=== PATIENT | male | born 2000 | race Caucasian/White ===

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

== ENCOUNTER 2022-04-04 12:16 | Emergency (ER) | payer BC ==
[2022-04-04] MEDS ORDERED: Boostrix 0.5 ML (Tdap) VIAL (>/=7 yrs of age) ONE (13:00)
[2022-04-04] MEDS ORDERED: Silver Sulfadiazine 50 GM TUBE ONE (13:00)
[2022-04-04] MEDS ORDERED: Cephalexin 500 MG CAP ONE (13:17)
== END 2022-04-04 13:19 | disposition home or self-care (01) ==
LOC: MADERS 12:16
DX: T22.20XA Burn of second degree of shoulder and upper limb, except wrist and hand, unspecified site, initial encounter (principal); X03.0XXA Exposure to flames in controlled fire, not in building or structure, initial encounter
CPT/HCPCS: 90471; 90715

== ENCOUNTER 2022-07-29 12:34 | Emergency (ER) | payer BC ==
[2022-07-29] MEDS ORDERED: Ketorolac Tromethamine 60 MG/2 ML VIAL ONE (13:15)
[2022-07-29] MEDS ORDERED: HYDROcodone/Acetaminophen 5/325 mg Tablet ONE (13:50)
[2022-07-29] MEDS ORDERED: Orphenadrine Citrate 60 MG/2 ML VIAL ONE (13:50)
== END 2022-07-29 14:35 | disposition home or self-care (01) ==
LOC: MADERS 12:34
DX: R29.898 Other symptoms and signs involving the musculoskeletal system (principal)
CPT/HCPCS: 71045; 96372; J1885; J2360

== ENCOUNTER 2022-09-15 22:21 | Emergency (ER) | payer OTHER, BC ==
[~2022-09-15 22:21] MED LIST: Iopamidol 370 76% 100 ML VIAL ONE; PROPOFOL 200 MG/20 ML VIAL ONE; Rocuronium Bromide 10 MG/ML (10ML VIAL) ONE; Sodium Chloride 0.9% 1,000 ML BAG ONE; Succinylcholine 200 MG/10 ml SYRINGE FS ONE
[2022-09-15] MEDS ORDERED: Ondansetron PF 4 MG/2 ML Vial ONE (22:23)
[2022-09-15 22:48] LABS: #Basophils 0.1 thou/uL (0.0-0.2); #Eosinphils 0.2 thou/uL (0.0-0.7); #Lymphocytes 2.7 thou/uL (1.20-3.40); #Monocytes 0.8 thou/uL (0.11-0.59); #Neutrophils 10.1 thou/uL (1.40-6.50); %Basophils 0.7 % (0.0-1.0); %Eosinophils 1.7 % (0.0-10.0); %Lymphocytes 19.1 % (21.0-51.0); %Monocytes 5.8 % (0.0-10.0); %Neutrophils 72.8 % (42.0-75.0); Hemoglobin 15.4 g/dL (14.0-18.0); Mean Corpuscular HGB CONC 34.1 g/dL (32.0-36.0); Mean Corpuscular Hemoglobin 31.3 pg (27.0-31.0); Mean Corpuscular Volume 91.8 fl (78.0-98.0); Mean Platelet Volume 9.3 fL (7.4-10.4); Platelet Count 229 10x3/uL (130-400); RBC Distribution Width 11.4 % (11.5-14.5); Red Blood Cell (RBC) Count 4.94 mill/uL (4.70-6.10); White Blood Cell (WBC) Count 13.9 10x3/uL (4.8-10.8)
[2022-09-15] MEDS ORDERED: Fentanyl 100 MCG/2 ML VIAL ONE (22:49)
[2022-09-15] MEDS ORDERED: levETIRAcetam 500 MG/5 ML VIAL ONE (22:58)
[2022-09-15 23:01] LABS: PTT 29.9 sec (22.9-36.1)
[2022-09-15 23:09] LABS: ALT (SGPT) 52 U/L (8-55); AST (SGOT) 55 U/L (5-34); Albumin 4.1 g/dL (3.5-5.0); Alcohol Less than 10 mg/dL (Less than 10); Alkaline Phosphatase 46 U/L (40-110); Anion Gap 15 mmol/L (10-20); BUN (Urea Nitrogen) 12 mg/dL (8.9-20.6); Bilirubin, Total 0.5 mg/dL (0.2-1.2); Calc. Creatinine Clearance 0 mL/min (70-130); Calcium 8.9 mg/dL (7.8-10.44); Carbon Dioxide 20 mmol/L (22-29); Chloride 108 mmol/L (98-107); Estimated GFR 92; Globulin 2.5 g/dL (2.4-3.5); Glucose 116 mg/dL (70-105); Lipase 66 U/L (8-78); Potassium 3.1 mmol/L (3.5-5.1); Protein, Total 6.6 g/dL (6.0-8.3); Sodium 140 mmol/L (136-145)
[2022-09-15] MEDS ORDERED: Boostrix 0.5 ML (Tdap) VIAL (>/=7 yrs of age) ONE (23:17)
[2022-09-16] MEDS ORDERED: Ipratropium/Albuterol 3 ML NEB ONE (00:08)
== END 2022-09-15 23:30 | disposition short-term general hospital (02) ==
LOC: EDBD → MADERS 22:21 → MERGE 22:21 → MADERS 23:30
DX: S06.9X9A Unspecified intracranial injury with loss of consciousness of unspecified duration, initial encounter (principal); S72.351A Displaced comminuted fracture of shaft of right femur, initial encounter for closed fracture; S36.032A Major laceration of spleen, initial encounter; S81.812A Laceration without foreign body, left lower leg, initial encounter; S40.812A Abrasion of left upper arm, initial encounter; S50.812A Abrasion of left forearm, initial encounter; J98.8 Other specified respiratory disorders; R11.10 Vomiting, unspecified; V47.0XXA Car driver injured in collision with fixed or stationary object in nontraffic accident, initial encounter; Z23 Encounter for immunization
CPT/HCPCS: 31500; 36415; 70450; 71260; 72125; 74177; 80053; 80307; 83605; 83690; 85025; 85610; 85730; 86850; 86900; 86901; 90471; 90715; 96361; 96374; 96375; G0390; J1953; J2405; J2704; J3010; J7050; Q9967

== ENCOUNTER 2024-02-10 10:13 | Emergency (ER) | payer BC ==
[2024-02-10] MEDS ORDERED: Dexamethasone 10 MG/ML VIAL ONE (11:19)
[2024-02-10 12:04] LABS: SARS-CoV-2 E Target Negative; SARS-CoV-2 N2 Target Negative; SARS-CoV-2 NAA Rapid Test Not Detected (NotDetected); SARS-CoV-2 RdRP gene Negative
== END 2024-02-10 12:29 | disposition home or self-care (01) ==
LOC: MADERS 10:13
DX: L20.9 Atopic dermatitis, unspecified (principal); R06.00 Dyspnea, unspecified; M79.10 Myalgia, unspecified site
CPT/HCPCS: 71046; 87081; 87430; 87804; 93005; J1100; U0002

== ENCOUNTER 2025-04-09 11:30 | Emergency (ER) | payer BC, OTHER ==
[2025-04-09] MEDS ORDERED: Ketorolac Tromethamine 30 MG (1 mL) VIAL ONE (12:12)
== END 2025-04-09 13:19 | disposition home or self-care (01) ==
LOC: MADERS 11:30
DX: S13.4XXA Sprain of ligaments of cervical spine, initial encounter (principal); V49.40XA Driver injured in collision with unspecified motor vehicles in traffic accident, initial encounter
CPT/HCPCS: 72125; 96372; J1885